=== PATIENT | female | born 1955 | race Caucasian/White ===

== ENCOUNTER → 2016-11-29 | Outpatient (REF) | payer BC ==
[2016-11-29 14:01] LABS: IMMUNOGLOBULIN M 62.2 MG/DL (40-230)
== END ==
LOC: M LAB REF 12:38
PROVIDERS: ATTEND Nurse Practitioner Adult Health
DX: D84.9 Immunodeficiency, unspecified (principal)

== ENCOUNTER → 2017-08-15 | Outpatient (REF) | payer OTHER | LOC: M SFHCWAGY 09:14 | DX: Z12.4 Encounter for screening for malignant neoplasm of cervix (principal) | CPT/HCPCS: G0123 ==

== ENCOUNTER → 2017-10-22 | Outpatient (CLI) | payer OTHER | LOC: M ADAMS 11:08 | DX: S80.01XA Contusion of right knee, initial encounter (principal); S50.01XA Contusion of right elbow, initial encounter; X58.XXXA Exposure to other specified factors, initial encounter; Y92.89 Other specified places as the place of occurrence of the external cause | CPT/HCPCS: 73080 ==

== ENCOUNTER → 2017-12-19 | Outpatient (REF) | payer OTHER | LOC: M LAB REF 13:37 | DX: R30.0 Dysuria (principal) | CPT/HCPCS: 87186 ==

== ENCOUNTER → 2018-06-03 | Outpatient (REF) | payer OTHER | LOC: M LAB REF 09:50 | DX: R30.0 Dysuria (principal) | CPT/HCPCS: 87086 ==

== ENCOUNTER → 2018-07-23 | Outpatient (CLI) | payer OTHER ==
--- NOTE | 2018-07-26 09:46 | DEXA ---
AP SPINE L1 - L4 1.184 -0.1 1.1 LT FEMUR TOTAL 0.977 -0.2 0.7 LT NECK 0.894 -1.0 0.2 RT FEMUR TOTAL 0.920 -0.7 0.2 RT NECK 0.852 -1.3 -0.1 TOTAL BODY TOTAL OTHER COMMENTS: Normal bone densitometry of the spine. There is low bone density of the hips. The density of the spine has decreased 1.3% since the initial exam on 12/20/2004. The spine density has increased 4.1% since the most recent exam on 07/21/2016. The density of the left hip has increased 1.3% since the initial exam on 12/20/2004. The density of the left hip is 0.0% since the most recent exam on 07/21/2016. The density of the right hip has increased 4.9% since the initial exam on 12/20/2004. The density of the right hip has decreased 1.6% since the most recent exam on 07/21 2016. FOLLOW-UP: Recommendation for the next bone density exam: 2 years. MARIA ELENA
== END ==
LOC: M WHC 12:41
PROVIDERS: ATTEND Physician Assistant
DX: M89.8X9 Other specified disorders of bone, unspecified site (principal); T45.1X5A Adverse effect of antineoplastic and immunosuppressive drugs, initial encounter

== ENCOUNTER → 2018-10-28 | Outpatient (CLI) | payer OTHER ==
[2018-10-28 18:50] LABS: BASO # 0.1 10^3/uL (0.0-0.2); BASO % 0.5 % (0.0-1.0); EOS # 0.2 10^3/uL (0.0-0.50); EOS % 1.5 % (0.0-3.0); HEMATOCRIT 42.4 % (36.0-47.0); HEMOGLOBIN 13.7 g/dl (12.0-15.5); LYMPH # 2.8 10^3/uL (1.5-4.5); LYMPH % 27.1 % (24.0-44.0); MEAN CORPUSCULAR HEMOGLOBIN 30.3 pg (27.0-33.0); MEAN CORPUSCULAR HGB CONC 32.3 g/dl (32.0-36.5); MEAN CORPUSCULAR VOLUME 93.8 fl (80.0-96.0); MONO # 0.7 10^3/uL (0.0-0.8); MONO % 6.8 % (0.0-5.0); NEUTROPHILS # 6.5 10^3/uL (1.8-7.7); NEUTROPHILS % 63.7 % (36.0-66.0); PLATELET COUNT, AUTOMATED 270 10^3/uL (150-450); RED BLOOD COUNT 4.52 10^6/uL (4.00-5.40); WHITE BLOOD COUNT 10.2 10^3/uL (4.0-10.0)
--- NOTE | 2018-10-29 07:10 | REP ---
CHEST, TWO VIEWS: Two views of the chest are performed and compared to prior study of 01/01/2011. There is no acute infiltrate or pulmonary edema. The heart is normal in size and the mediastinal silhouette is unchanged. Multiple metallic clips are seen in the left axillary region and a couple are seen in the right chest wall. There are mild degenerative changes of the spine. IMPRESSION: No acute pulmonary disease. Electronically Signed by Alexander Lopes MD 10/29/2018 09:20 A
== END ==
LOC: M ADAMS 13:14
PROVIDERS: ATTEND Physician Assistant Medical
DX: J20.9 Acute bronchitis, unspecified (principal)

== ENCOUNTER → 2018-12-28 | Outpatient (REF) | payer OTHER ==
[~2018-12-28] MED LIST: ALPR0.5T3 PO; BENZ-18 PO; BUPR150T3 PO; CALTTAB6 PO; CEFD1CAP8 PO; FISH1000 PO; FURO40TA2 PO; INTR6.5S PV; LETR2.5T2 PO; LEVO750T13 PO; LISI10TA4 PO; MEGE20TA3 PO; MONT10TA2 PO; MOXI1TAB PO; OMEP-221 PO; ONDA8TAB8 PO; PROAAER10 INH; RALO1TAB PO; ROSU5TAB4 PO; SULF1TAB93; VITMTA PO
== END ==
LOC: M LAB REF 13:59
PROVIDERS: ATTEND Physician Assistant Medical
DX: N39.0 Urinary tract infection, site not specified (principal)

== ENCOUNTER 2018-12-31 11:05 | Emergency (ER) | payer OTHER ==
[~2018-12-31] VITALS: Ht 175.3 cm; Wt 90.0 kg
[2018-12-31 12:01] LABS: BASO % 0.3 % (0.0-1.0); EOS % 0.2 % (0.0-3.0); HEMATOCRIT 40.6 % (36.0-47.0); HEMOGLOBIN 13.5 g/dl (12.0-15.5); LYMPH # 1.4 10^3/uL (1.5-4.5); LYMPH % 14.2 % (24.0-44.0); MEAN CORPUSCULAR HEMOGLOBIN 30.1 pg (27.0-33.0); MEAN CORPUSCULAR HGB CONC 33.3 g/dl (32.0-36.5); MEAN CORPUSCULAR VOLUME 90.6 fl (80.0-96.0); MONO # 1.1 10^3/uL (0.0-0.8); MONO % 11.7 % (0.0-5.0); NEUTROPHILS # 7.1 10^3/uL (1.8-7.7); NEUTROPHILS % 73.1 % (36.0-66.0); PLATELET COUNT, AUTOMATED 291 10^3/uL (150-450); RED BLOOD COUNT 4.48 10^6/uL (4.00-5.40); WHITE BLOOD COUNT 9.7 10^3/uL (4.0-10.0)
--- NOTE | 2018-12-31 12:07 | REP ---
Clinical: Cough and dyspnea. Technique: PA and lateral. Comparison: 10/28/2018. Findings: Left lower lobe infiltrate compatible with acute pneumonia. Mediastinum and cardiac silhouette normal. No effusion. No pneumothorax. Skeletal structures intact. Evidence for prior left axillary node dissection. Impression: Left lower lobe pneumonia. Electronically Signed by Jim Haas MD 12/31/2018 11:59 A
[2018-12-31] MEDS ORDERED: LISI10TA4 PO (12:13)
[2018-12-31] MEDS ORDERED: PROAAER10 INH (12:13)
[2018-12-31] MEDS ORDERED: INTR6.5S PV (12:13)
[2018-12-31] MEDS ORDERED: ONDA8TAB8 PO (12:13)
[2018-12-31] MEDS ORDERED: SULF1TAB93 (12:13)
[2018-12-31] MEDS ORDERED: MONT10TA2 PO (12:13)
[2018-12-31] MEDS ORDERED: BUPR150T3 PO (12:13)
[2018-12-31] MEDS ORDERED: ROSU5TAB4 PO (12:13)
[2018-12-31] MEDS ORDERED: MEGE20TA3 PO (12:13)
[2018-12-31] MEDS ORDERED: BENZ-18 PO (12:13)
[2018-12-31] MEDS ORDERED: OMEP-221 PO (12:13)
[2018-12-31] MEDS ORDERED: LETR2.5T2 PO (12:13)
[2018-12-31] MEDS ORDERED: RALO1TAB PO (12:13)
[2018-12-31] MEDS ORDERED: FURO40TA2 PO (12:13)
[2018-12-31] MEDS ORDERED: ALPR0.5T3 PO (12:13)
[2018-12-31 12:28] LABS: BLOOD UREA NITROGEN 12 MG/DL (7-18); CALCIUM LEVEL 9.2 MG/DL (8.8-10.2); CARBON DIOXIDE LEVEL 24 MEQ/L (21-32); CHLORIDE LEVEL 104 MEQ/L (98-107); CREATININE FOR GFR 0.89 MG/DL (0.55-1.30); GLOMERULAR FILTRATION RATE > 60.0 (>45); GLUCOSE, FASTING 104 MG/DL (70-100); POTASSIUM SERUM 4.3 MEQ/L (3.5-5.1); SODIUM LEVEL 137 MEQ/L (136-145)
[2018-12-31 12:29] LABS: ALBUMIN 3.4 GM/DL (3.2-5.2); ALT/SGPT 118 U/L (12-78); BILIRUBIN,DIRECT 0.2 MG/DL (0.0-0.2); BILIRUBIN,TOTAL 0.5 MG/DL (0.2-1.0); TOTAL PROTEIN 7.1 GM/DL (6.4-8.2)
[2018-12-31] MEDS ORDERED: CEFD1CAP8 PO (12:31)
[2018-12-31] MEDS ORDERED: MOXIFLOXACIN HCL 400 MG in APPROPRIATE DILUENT 1 EA IV ONE (13:00)
[2018-12-31] MEDS ORDERED: MOXI1TAB PO (14:43)
[2018-12-31 15:12] VITALS: BP 126/59
--- NOTE | 2018-12-31 21:05 | ECGEPIP ---
[facility] - ED Test Date: 2018-12-31 Pat Name: HECTOR PHILLIPS Department: Room: - Gender: Female Daycare Worker: mark : 1955 Requested By: Tamiko Lundberg Order Number: [id number] Reading MD: Tamiko Lundberg Measurements Intervals [place] Rate: 94 P: 49 MA: 166 QRS: 32 QRSD: 87 T: 40 QT: 339 QTc: 425 Interpretive Statements SINUS RHYTHM NO PRIOR FOR COMPARISON Electronically Signed on 12-31-2018 21:05:15 EDT by Tamiko Lundberg
[2019-01-01] MEDS ORDERED: VITMTA PO (11:42)
[2019-01-01] MEDS ORDERED: CALTTAB6 PO (11:42)
[2019-01-01] MEDS ORDERED: FISH1000 PO (11:42)
== END 2018-12-31 15:20 | disposition home or self-care (01) ==
LOC: M ED 11:05
DX: J18.9 Pneumonia, unspecified organism (principal); Z79.899 Other long term (current) drug therapy; Z88.1 Allergy status to other antibiotic agents; Z88.8 Allergy status to other drugs, medicaments and biological substances; Z91.040 Latex allergy status
CPT/HCPCS: 71046; 80048; 80076; 83605; 85025; 87040; 87486; 87581; 87633; 87798; 93005; 93041; 94760; 96365; 99285; J2280

== ENCOUNTER 2019-01-01 07:07 | Inpatient (IN) | payer OTHER ==
[~2019-01-01] VITALS: Ht 175.3 cm; Wt 93.2 kg
[~2019-01-01 07:07] MED LIST changes: -CALTTAB6 PO; -FISH1000 PO; -LEVO750T13 PO; -VITMTA PO
[2019-01-01 08:17] LABS: BASO # 0.1 10^3/uL (0.0-0.2); BASO % 0.5 % (0.0-1.0); EOS # 0.1 10^3/uL (0.0-0.50); EOS % 1.1 % (0.0-3.0); HEMATOCRIT 39.5 % (36.0-47.0); HEMOGLOBIN 13.4 g/dl (12.0-15.5); LYMPH # 1.7 10^3/uL (1.5-4.5); MEAN CORPUSCULAR HEMOGLOBIN 31.5 pg (27.0-33.0); MEAN CORPUSCULAR HGB CONC 33.9 g/dl (32.0-36.5); MEAN CORPUSCULAR VOLUME 92.9 fl (80.0-96.0); MONO # 1.1 10^3/uL (0.0-0.8); MONO % 11.1 % (0.0-5.0); NEUTROPHILS # 6.9 10^3/uL (1.8-7.7); NEUTROPHILS % 69.8 % (36.0-66.0); PLATELET COUNT, AUTOMATED 293 10^3/uL (150-450); RED BLOOD COUNT 4.25 10^6/uL (4.00-5.40); WHITE BLOOD COUNT 9.9 10^3/uL (4.0-10.0)
[2019-01-01] MEDS ORDERED: NS 500 ML IV ONE (09:00)
[2019-01-01 10:16] LABS: BLOOD UREA NITROGEN 13 MG/DL (7-18); CARBON DIOXIDE LEVEL 20 MEQ/L (21-32); CHLORIDE LEVEL 106 MEQ/L (98-107); CREATININE FOR GFR 0.94 MG/DL (0.55-1.30); GLOMERULAR FILTRATION RATE > 60.0 (>45); GLUCOSE, FASTING 106 MG/DL (70-100); POTASSIUM SERUM 4.4 MEQ/L (3.5-5.1); SODIUM LEVEL 136 MEQ/L (136-145)
[2019-01-01 10:17] LABS: ALBUMIN 3.1 GM/DL (3.2-5.2); ALT/SGPT 122 U/L (12-78); BILIRUBIN,DIRECT < 0.1 MG/DL (0.0-0.2); BILIRUBIN,TOTAL 0.5 MG/DL (0.2-1.0); CALCIUM LEVEL 9.3 MG/DL (8.8-10.2); CK-MB VALUE MASS < 1.0 NG/ML (<3.6); CPK CREATINE PHOSPHOKINASE 118 U/L (26-192); MB/CK RELATIVE INDEX 0.85 (< OR =4); TOTAL PROTEIN 7.3 GM/DL (6.4-8.2); TROPONIN I < 0.02 NG/ML (< 0.10)
[2019-01-01] MEDS ORDERED: VITMTA PO (11:42)
[2019-01-01] MEDS ORDERED: FISH1000 PO (11:42)
[2019-01-01] MEDS ORDERED: CALTTAB6 PO (11:42)
[2019-01-01] MEDS ORDERED: ONDANSETRON 4MG/2ML VIAL (J2405) IV PRN (12:15)
[2019-01-01 12:30] VITALS: BP 132/75
[2019-01-01] MEDS ORDERED: IPRATROPIUM 0.5MG/ALBUTEROL 2.5MG INH SOL UD 3ML (DUONEB)(J7620) NEB PRN (12:30)
[2019-01-01] MEDS: ALPRAZolam 0.5 MG TAB PO SCH (12:37)
[2019-01-01] MEDS: MULTIVITAMINS/MINERALS THERAP 1 TAB PO SCH (12:37)
--- NOTE | 2019-01-01 12:38 | HPEPDOC ---
[facility] Medical History & Physical Date of Admission January 01, 2019 Date of Service: January 01, 2019 History and Physical PCP: Roberta Mendosa CHIEF COMPLAINT: Weakness and cough HISTORY OF PRESENT ILLNESS: Patient is a 63-year-old female who was in her usual state of reasonably good health when on she began to have significant weakness cough and significant night sweats which were drenching her sheets. She also notices that on Monday to begin have dysuria with urgency and she did present to urgent care where she can provide a sample and was told that she had a urinary tract infection. She was sent home with Bactrim and states she took this Monday some minimal improvement in her symptoms. Following this on Monday she woke with persistence of her cough night sweats feeling worse she called urgent care once again and they provided with a new prescription for Omnicef. She took this for one day before presenting to the emergency room on 1 day after being evaluated there having stable labs and imaging she was discharged home. She had persistence of her symptoms and feeling worse prompting her to repeat present to our ER once again today. He tells me that she feels no better and is not improved she still has a persistent cough and sweats her urinary symptoms are somewhat improved. She'll be that she had a temperature of 102 at home on Monday but has not measured since. Over this period of time the patient also reports some dry heaves. Otherwise patient denies weight loss, hair loss, headache, visual changes, chest pain, shortness of breath, diarrhea, abdominal pain, muscle aches, worsening arthritis, change in mood, the patient does report or appetite over the last several days PAST MEDICAL HISTORY: 1. Infiltrating ductal carcinoma of the left breast HER-2 positive. 2. Hypertension. 3. Gastroesophageal reflux disease 4. Anxiety 5. Seasonal allergies 6. Dyslipidemia 7. Postmenopausal vaginal dryness HOME MEDICATIONS: Please see below. ALLERGIES: Please see below PAST SURGICAL HISTORY: 1. Left radical modified mastectomy. 2. port placement. 3. Colonoscopy. 4. Right mastectomy 5. D&C 6. Hysterectomy 7. 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 ETOH: Rare lasting 2 weeks ago, Illicit drug use: Denies, Tattoos done unprofessionally: Denies, CODE STATUS: Full code FAMILY HISTORY:Reviewed and noncontributory REVIEW OF SYSTEMS: 10 systems reviewed and negative other than HPI PHYSICAL EXAMINATION: VITAL SIGNS: Temperature 95.8, pulse 97, respiratory rate 18, blood pressure 131/68, pulse oximetry History % on 2 L GENERAL: Pleasant female sitting up in bed awake alert oriented speaking in complete sentences appears mildly fatigued she is diaphoretic HEENT: Dry mucous membranes no elevation and CVP CARDIOVASCULAR: S1 S2 regular no additional heart sounds appreciated. RESPIRATORY: Clear to auscultation bilaterally. Some rales at the left lower lobe ABDOMINAL: Bowel sounds present abdomen soft and nontender EXTREMITIES: No clubbing cyanosis or edema NEUROLOGICAL: Spontaneously moves all 4 extremities cranial 2 through 12 grossly intact no gross focal deficits appreciated PSYCHOLOGICAL: Appropriate LABORATORY DATA: See below. MICROBIOLOGY: Please see below. IMAGING: Chest x-ray:Left lower lobe pneumonia. ASSESSMENT & PLAN: This is a 63-year-old female with cough and weakness and fever at home are suspicious for left lower lobe community-acquired pneumonia. PROBLEMS: 1. Community-acquired pneumonia: Likely the etiology for her fevers at home and generalized weakness feeling unwell dry heaves and cough. She does have significant antibiotic allergies help place her on levofloxacin IV for the time being as she has had difficulty keeping food and pills down. She'll be admitted to medical surgical floor with close monitoring I will hold her home Lasix she did receive some IV fluid emergency room she is hemodynamically stable and not tachycardic, she is mildly hypothermic I'll provide her with acetaminophen as needed. Blood cultures have been drawn, given her question history of urinary tract infection I will check a UA with reflex urine culture. I will also check a respiratory PCR panel. She is wearing oxygen will examine her in the emergency room she does not use any home O2 she has no history of tobacco or COPD but was reportedly provided with an inhaler back in September which was admitted with pneumonia to an outside facility. I'll provide her with nebulizers for the time being. I'll also check a pro-calcitonin and follow-up her cultures closely 2.Hypertension: I'm holding her home furosemide continue with her lisinopril with holding parameter 3. Anxiety: Quite significant we'll continue her on her Wellbutrin and Xanax 4. Dyspareunia: Given her rather curious presentation I will hold her intrarosa 5. Seasonal allergies: Continue with Singulair 6. Infiltrating ductal carcinoma of the left breast: Completed chemotherapy 10 years ago continue with letrozole 7. Dyslipidemia: I will hold her statin she does have some mild abnormality of liver function tests will monitor while she is hospitalized 8. Obstructive lung disease: No history of documented asthma or COPD or significant risk factors. She does use albuterol home and does find some relief with this and as such I'll provide her with many treatments for the time being while she is hospitalized. She has no baseline O2 requirement and is requiring 2 L of emergency room we'll wean to room air as tolerated DVT PROPHYLAXIS: Lovenox DISPOSITION: Medical surgical floor inpatient status Vital Signs Vital Signs Date Time Temp Pulse Resp B/P (MAP) Pulse Ox O2 Delivery O2 Flow Rate FiO2 01/01/19 11:45 84 18 95 01/01/19 11:30 138/76 (96) 01/01/19 11:15 96.9 Nasal Cannula 2.0 Laboratory Data Labs 24H Laboratory Tests 2 01/01/19 08:04: Immature Granulocyte % (Auto) 0.5, White Blood Count 9.9, Red Blood Count 4.25, Hemoglobin 13.4, Hematocrit 39.5, Mean Corpuscular Volume 92.9, Mean Corpuscular Hemoglobin 31.5, Mean Corpuscular Hemoglobin Concent 33.9, Red Cell Distribution Width 13.2, Platelet Count 293, Neutrophils (%) (Auto) 69.8H, Lymphocytes (%) (Auto) 17.0L, Monocytes (%) (Auto) 11.1H, Eosinophils (%) (Auto) 1.1, Basophils (%) (Auto) 0.5, Neutrophils # (Auto) 6.9, Lymphocytes # (Auto) 1.7, Monocytes # (Auto) 1.1H, Eosinophils # (Auto) 0.1, Basophils # (Auto) 0.1, Nucleated Red Blood Cells % (auto) 0.0, Anion Gap 10, Glomerular Filtration Rate > 60.0, Calcium Level 9.3, Aspartate Amino Transf (AST/SGOT) 80H, Alanine Aminotransferase (ALT/SGPT) 122H, Alkaline Phosphatase 95, Total Bilirubin 0.5, Direct Bilirubin < 0.1, Total Creatine Kinase 118, Creatine Kinase MB < 1.0, Creatine Kinase MB Relative Index 0.85, Troponin I < 0.02, Total Protein 7.3, Albumin 3.1L, Albumin/Globulin Ratio 0.74L 01/01/19 09:29: Lactic Acid Level 1.1 CBC/BMP Laboratory Tests 01/01/19 08:04 Red Blood Count 4.25, Mean Corpuscular Volume 92.9, Mean Corpuscular Hemoglobin 31.5, Mean Corpuscular Hemoglobin Concent 33.9, Red Cell Distribution Width 13.2, Neutrophils (%) (Auto) 69.8 H, Lymphocytes (%) (Auto) 17.0 L, Monocytes (%) (Auto) 11.1 H, Eosinophils (%) (Auto) 1.1, Basophils (%) (Auto) 0.5, Neutrophils # (Auto) 6.9, Lymphocytes # (Auto) 1.7, Monocytes # (Auto) 1.1 H, Eosinophils # (Auto) 0.1, Basophils # (Auto) 0.1 Microbiology Microbiology 01/01/19 Blood Culture, Received Pending 01/01/19 Blood Culture, Received Pending Home Medications Scheduled Alprazolam (Alprazolam) 0.5 Mg Tablet, 0.5 MG PO QAM Bupropion Hcl (Bupropion Xl) 150 Mg Tab.er.24h, 150 MG PO DAILY Markos/D3/Mag11/Zinc/Primary Class Teacher/Raudel/Bor (Caltrate 600+D Plus Tablet) 1 Each Tablet, 1 TAB PO DAILY Cefdinir (Cefdinir) 300 Mg Capsule, 300 MG PO BID STARTED 12/30 FOR 7 DAYS Furosemide (Furosemide) 40 Mg Tablet, 40 MG PO DAILY Letrozole (Letrozole) 2.5 Mg Tablet, 2.5 MG PO QHS Lisinopril (Lisinopril) 10 Mg Tablet, 10 MG PO QHS Montelukast Sodium (Montelukast Sodium) 10 Mg Tablet, 10 MG PO QHS Multivitamins (Thera M Plus Tablet) 1 Each Tablet, 1 TAB PO DAILY [place]-3 Fatty Acids/Fish Oil (Fish Oil 1,000 mg Capsule) 1 Each Capsule, 1 CAP PO QHS Omeprazole (Omeprazole) 40 Mg Capsule.dr, 40 MG PO DAILY Prasterone (Dhea) (Intrarosa) 6.5 Mg Insert, 6.5 MG PV QHS Raloxifene HCl (Raloxifene HCl) 60 Mg Tablet, 60 MG PO QHS Rosuvastatin Calcium (Rosuvastatin Calcium) 5 Mg Tablet, 5 MG PO QHS Scheduled PRN Albuterol Sulfate (Proair Hfa) 8.5 Gm Hfa.aer.ad, 2 PUFFS INH Q4H PRN for SHORTN ESS OF BREATH Benzonatate (Benzonatate) 100 Mg Capsule, 200 MG PO TID PRN for COUGH Megestrol Acetate (Megestrol Acetate) 20 Mg Tablet, 20 MG PO DAILY PRN for HOT FLASHES Ondansetron (Ondansetron Odt) 8 Mg Tab.rapdis, 8 MG PO Q8H PRN for NAUSEA Allergies Coded Allergies: latex (Verified Allergy, Intermediate, rash,swelling,numbness, 12/31/18) Tetracyclines (Verified Allergy, Unknown, 12/31/18) rash clarithromycin (Verified Allergy, Unknown, 12/31/18) hives docetaxel (Verified Allergy, Unknown, 12/31/18) paclitaxel (Verified Allergy, Unknown, 12/31/18) anaph scopolamine (Verified Allergy, Unknown, 12/31/18) rash tobramycin (Verified Allergy, Unknown, 12/31/18) swelling A-FIB/CHADSVASC A-FIB History Current/History of A-Fib/PAF?: No MAYKEL VIGIL MD January 01, 2019 12:38
[2019-01-01] MEDS: LevoFLOXacin IV 750 MG in APPROPRIATE DILUENT 1 EA IV SCH (13:46)
[2019-01-01] MEDS: IPRATROPIUM 0.5MG/ALBUTEROL 2.5MG INH SOL UD 3ML (DUONEB)(J7620) NEB SCH (15:53)
[2019-01-01] MEDS: ENOXAPARIN 40 MG/0.4 ML SYRINGE (J1650) SC SCH (20:30)
[2019-01-01] MEDS: LETROZOLE 2.5 MG TAB PO SCH (20:31)
[2019-01-01] MEDS: MONTELUKAST 10 MG TAB PO SCH (20:31)
[2019-01-01] MEDS: LISINOPRIL 10 MG TAB PO SCH ×3 (20:33→21:00)
--- NOTE | 2019-01-01 20:56 | ECGEPIP ---
[facility] - ED Test Date: 2019-01-01 Pat Name: HECTOR PHILLIPS Department: Room: - Gender: Female Clinical Staff Pharmacist: : 1955 Requested By: Tamiko Lundberg Order Number: [id number] Reading MD: Tamiko Lundberg Measurements Intervals [place] Rate: 84 P: 44 WI: 168 QRS: 24 QRSD: 91 T: 31 QT: 369 QTc: 436 Interpretive Statements SINUS RHYTHM DECREASED RATE 12/31/18 Electronically Signed on 01-01-2019 20:56:42 EDT by Tamiko Lundberg
[2019-01-01 22:00] VITALS: BP 141/72
[2019-01-02] MEDS: ACETAMINOPHEN TAB 650MG DOSE (2X325MG) PO PRN ×2 (00:08→21:30)
[2019-01-02] MEDS: BENZONATATE 100 MG CAP PO PRN ×2 (00:08→21:30)
[2019-01-02 06:00] VITALS: BP 138/72
[2019-01-02 06:59] LABS: HEMATOCRIT 37.6 % (36.0-47.0); HEMOGLOBIN 12.5 g/dl (12.0-15.5); MEAN CORPUSCULAR HEMOGLOBIN 31.2 pg (27.0-33.0); MEAN CORPUSCULAR HGB CONC 33.2 g/dl (32.0-36.5); MEAN CORPUSCULAR VOLUME 93.8 fl (80.0-96.0); PLATELET COUNT, AUTOMATED 289 10^3/uL (150-450); RED BLOOD COUNT 4.01 10^6/uL (4.00-5.40); WHITE BLOOD COUNT 8.6 10^3/uL (4.0-10.0)
[2019-01-02] MEDS: IPRATROPIUM 0.5MG/ALBUTEROL 2.5MG INH SOL UD 3ML (DUONEB)(J7620) NEB SCH ×3 (07:26→14:52)
[2019-01-02 07:30] LABS: ALBUMIN 2.9 GM/DL (3.2-5.2); ALT/SGPT 175 U/L (12-78); BILIRUBIN,TOTAL 0.3 MG/DL (0.2-1.0); BLOOD UREA NITROGEN 11 MG/DL (7-18); CALCIUM LEVEL 9.3 MG/DL (8.8-10.2); CARBON DIOXIDE LEVEL 25 MEQ/L (21-32); CHLORIDE LEVEL 107 MEQ/L (98-107); CREATININE FOR GFR 0.74 MG/DL (0.55-1.30); GLOMERULAR FILTRATION RATE > 60.0 (>45); GLUCOSE, FASTING 99 MG/DL (70-100); POTASSIUM SERUM 3.8 MEQ/L (3.5-5.1); SODIUM LEVEL 140 MEQ/L (136-145); TOTAL PROTEIN 6.9 GM/DL (6.4-8.2)
[2019-01-02 08:56] LABS: PROTHROMBIN TIME 13.4 SECONDS (12.1-14.4)
[2019-01-02] MEDS: MULTIVITAMINS/MINERALS THERAP 1 TAB PO SCH ×2 (09:00→09:02)
[2019-01-02] MEDS: buPROPion **XL** TABLET 150MG (WELLBUTRIN XL) PO SCH (09:02)
[2019-01-02] MEDS: ALPRAZolam 0.5 MG TAB PO SCH (09:02)
[2019-01-02] MEDS: OMEPRAZOLE 20 MG CAP PO SCH (09:03)
--- NOTE | 2019-01-02 13:16 | IPNPDOC ---
Text Note Date of Service The patient was seen on 01/02/19. NOTE SUBJECTIVE: Ms. Seals is doing well this morning, denies difficulty breathing. She does want her home Lasix resumed as she has lymphedema of her left upper extremity status post mastectomy for breast cancer. Her left arm is starting to swell as it normally does and it is uncomfortable for her, she does state that she feels a little bit of burning with urination and that her urine does look a little darker than normal. No abdominal pain however. She otherwise denies chest pain, shortness breath, nausea, vomiting, fevers, chills. OBJECTIVE PHYSICAL EXAMINATION: VITAL SIGNS: Please see below. GENERAL: This is a pleasant 63-year-old female appearing her stated age who is sitting up in bed awake alert oriented speaking in complete sentences no acute distress HEENT: Moist mucous membranes, no JVD, EOMI CARDIOVASCULAR: S1 S2 regular, no murmurs rubs or gallops appreciated RESPIRATORY: Clear to auscultation bilaterally, no wheezing, rales or rhonchi appreciated ABDOMINAL: Normoactive bowel sounds 4, no hepatosplenomegaly or masses appreciated, no distention, no pain to palpation, no rebound rigidity or guarding EXTREMITIES: No clubbing, cyanosis or edema appreciated in lower extremities however left upper extremity is a bit edematous from shoulder to fingers. NEUROLOGICAL: No focal deficits appreciated PSYCHOLOGICAL: Affect is appropriate LABORATORY DATA, MICROBIOLOGY: Please see below. ASSESSMENT AND PLAN: This is a 63-year-old female who presented to the emergency department with weakness and cough and admitted for presumed pneumonia. 1. Community-acquired pneumonia -Due to her numerous allergies will continue the patient on levofloxacin IV for the time being. We will transition her to by mouth antibiotics shortly. Respiratory panel was negative and blood cultures are negative after 24 hours. Calcitonin pending. We will give her Mucinex to help with her excretions. 2. UTI -Urine culture is currently pending, urinalysis showed questionable UTI, however she is on levofloxacin which should cover for this as well. We'll monitor the patient's symptoms. We will await urine culture to tailor antibiotics if needed 3. Left upper extremity lymphedema -We will continue the patient's home Lasix but we'll also order a left upper extremity ultrasound to rule out DVT just in case. 4. Elevated LFTs - AST and ALT 108 and 175 respectively, patient does not have any tattoos or history of IV drug use. We will hold on hepatitis panel for now but we are obtaining right upper quadrant ultrasound. It is likely that this is due to initiation of statin into her medical regime about 3 months ago. We are holding statin currently. We will await right upper quadrant ultrasound for further recommendations. 5. Hypertension -We have resumed patient's home furosemide with holding parameters for her lymphedema which is bothering her and her left upper extremity, lisinopril is on board holding parameters as well 6. Anxiety -Continue Wellbutrin and Xanax 7. Infiltrating ductal carcinoma of the left breast -Completed chemotherapy 10 years ago continue with letrozole 7. Dyslipidemia -As mentioned above we are holding her statin for mild abnormality of liver function tests 8. COPD likely diagnosis -No formal documentation of this diagnosis. She uses albuterol at home. She may continue her DuoNebs here as needed. She was not using oxygen on physical examination today. Continue to monitor. DISPOSITION: We will see how her breathing status is doing tomorrow and also review the results right upper quadrant ultrasound for liver function test abno rmalities. VS,Fishbone, I+O VS, Fishbone, I+O Laboratory Tests 01/02/19 06:23 Red Blood Count 4.01, Mean Corpuscular Volume 93.8, Mean Corpuscular Hemoglobin 31.2, Mean Corpuscular Hemoglobin Concent 33.2, Red Cell Distribution Width 13.0, Calcium Level 9.3, Aspartate Amino Transf (AST/SGOT) 108 H, Alanine Aminotransferase (ALT/SGPT) 175 H, Alkaline Phosphatase 93, Total Bilirubin 0.3, Total Protein 6.9, Albumin 2.9 L Vital Signs Date Time Temp Pulse Resp B/P (MAP) Pulse Ox O2 Delivery O2 Flow Rate FiO2 01/02/19 06:00 98.8 90 18 138/72 (94) 95 2.0 01/01/19 11:15 Nasal Cannula I&O- Last 24 Hours up to 6 AM 01/02/19 06:00 Intake Total 1890 ml Output Total 925 ml Balance 965 ml GME ATTESTATION GME ATTESTATION My faculty preceptor for this patient encounter was physically present during the encounter and was fully available. All aspects of the patient interview, examination, medical decision making process, and medical care plan development were reviewed and approved by the faculty preceptor. The faculty preceptor is aware and concurs with the plan as stated in the body of this note and will attest to such by his/her cosignature. ATTENDING NOTE I saw and evaluated the patient. I agree with the findings and plan of care as documented in the resident's note JANY YBARRA DO January 02, 2019 13:16 MAYKEL VIGIL MD Jan 05, 2019 12:21
[2019-01-02 14:00] VITALS: BP 133/70
[2019-01-02] MEDS: LevoFLOXacin IV 750 MG in APPROPRIATE DILUENT 1 EA IV SCH (14:01)
[2019-01-02] MEDS: guaiFENesin ER 600 MG TAB PO SCH ×2 (14:01→21:30)
[2019-01-02 14:02] VITALS: BP 136/72
[2019-01-02] MEDS: FUROSEMIDE 40 MG TAB PO SCH (14:02)
--- NOTE | 2019-01-02 18:10 | REP ---
Clinical: Left upper extremity swelling. Technique: Real time andrews scale and color Doppler evaluation using linear high frequency transducer. Findings: Ultrasound examination of the left upper extremity venous structures including visualized jugular, subclavian, axillary, brachial, basilic, and cephalic veins demonstrate normal venous flow characteristics and no evidence for deep venous thrombosis. Impression: No DVT to the left upper extremity Electronically Signed by Jim Haas MD 01/02/2019 06:01 P
[2019-01-02] MEDS: ENOXAPARIN 40 MG/0.4 ML SYRINGE (J1650) SC SCH (21:28)
[2019-01-02 21:29] VITALS: BP 131/70
[2019-01-02] MEDS: LISINOPRIL 10 MG TAB PO SCH (21:29)
[2019-01-02] MEDS: MONTELUKAST 10 MG TAB PO SCH (21:30)
[2019-01-02] MEDS: LETROZOLE 2.5 MG TAB PO SCH (21:31)
[2019-01-02 22:00] VITALS: BP 131/70
[2019-01-03 06:00] VITALS: BP 120/74
[2019-01-03 06:22] LABS: HEMATOCRIT 36.6 % (36.0-47.0); MEAN CORPUSCULAR HEMOGLOBIN 30.1 pg (27.0-33.0); MEAN CORPUSCULAR HGB CONC 32.8 g/dl (32.0-36.5); MEAN CORPUSCULAR VOLUME 91.7 fl (80.0-96.0); PLATELET COUNT, AUTOMATED 336 10^3/uL (150-450); RED BLOOD COUNT 3.99 10^6/uL (4.00-5.40); WHITE BLOOD COUNT 9.1 10^3/uL (4.0-10.0)
[2019-01-03 06:50] LABS: ALBUMIN 2.8 GM/DL (3.2-5.2); ALT/SGPT 130 U/L (12-78); BILIRUBIN,TOTAL 0.6 MG/DL (0.2-1.0); BLOOD UREA NITROGEN 12 MG/DL (7-18); CALCIUM LEVEL 8.6 MG/DL (8.8-10.2); CARBON DIOXIDE LEVEL 27 MEQ/L (21-32); CHLORIDE LEVEL 107 MEQ/L (98-107); GLOMERULAR FILTRATION RATE > 60.0 (>45); GLUCOSE, FASTING 96 MG/DL (70-100); POTASSIUM SERUM 3.9 MEQ/L (3.5-5.1); SODIUM LEVEL 142 MEQ/L (136-145)
[2019-01-03] MEDS: IPRATROPIUM 0.5MG/ALBUTEROL 2.5MG INH SOL UD 3ML (DUONEB)(J7620) NEB SCH ×2 (07:54)
--- NOTE | 2019-01-03 08:13 | REP ---
Clinical: Hepatitis. Technique: Real time andrews scale ultrasound examination using curved array transducer. Findings: The liver demonstrates mild fatty infiltration without focal hepatic lesion. Incidental simple hepatic cysts are identified measuring 9 mm in the right lobe and 15 mm in the left lobe. The pancreas is incompletely evaluated but visualized portions appear normal. Gallbladder demonstrates layering sludge without wall thickening or pericholecystic fluid. No biliary ductal dilatation is appreciated and the common bile duct measures 3.3 mm diameter. Right kidney is normal in reniform shape without hydronephrosis and measures 11.2 x 4.4 x 5.0 cm. No ascites in the visualized right upper quadrant. Impression: 1. Hepatic steatosis and small benign simple hepatic cysts. 2. Layering sludge in the gallbladder without evidence for acute cholecystitis. Electronically Signed by Jim Haas MD 01/02/2019 01:39 P
[2019-01-03] MEDS: MULTIVITAMINS/MINERALS THERAP 1 TAB PO SCH (09:21)
[2019-01-03] MEDS: buPROPion **XL** TABLET 150MG (WELLBUTRIN XL) PO SCH (09:21)
[2019-01-03] MEDS: OMEPRAZOLE 20 MG CAP PO SCH (09:21)
[2019-01-03] MEDS: ALPRAZolam 0.5 MG TAB PO SCH (09:22)
[2019-01-03] MEDS: FUROSEMIDE 40 MG TAB PO SCH (09:22)
[2019-01-03] MEDS: guaiFENesin ER 600 MG TAB PO SCH (09:22)
[2019-01-03] MEDS: LevoFLOXacin IV 750 MG in APPROPRIATE DILUENT 1 EA IV SCH (13:02)
[2019-01-03] MEDS ORDERED: LEVO750T13 PO (13:54)
[2019-01-03 14:00] VITALS: BP 140/76
--- NOTE | 2019-01-03 15:02 | DS.PDOC ---
Discharge Summary General Date of Admission January 01, 2019 at 10:49 Date of Discharge 01/03/2019 Discharge Summary DISCHARGE DIAGNOSIS:Community acquired pneumonia SECONDARY DIAGNOSIS: 1.Anxiety 2. Hypertension 3. Gastroesophageal reflux disease 4. Infiltrating ductal carcinoma of the left breast HER-2 positive 5. Seasonal allergies 6. Dyslipidemia 7. Postmenopausal vaginal dryness PROCEDURES PERFORMED DURING STAY: None. CONSULTANTS: None HOSPITAL COURSE: Patient is 63-year-old female who was admitted weakness cough and night sweats for several days. She was seen at urgent care [facility] was suggestive of urinary tract infection she start antibiotics but not have improvement in her symptoms. She presented to the emergency room this was found to have a left lower lobe infiltrate was started on antibiotics for community-acquired pneumonia. The patient had good improvement in her symptoms she remained afebrile without leukocytosis and tachycardia treated with physical therapy and was cleared today she reports good improvement in her symptoms and is medically stable for discharge home. DISCHARGE MEDICATIONS: Please see below. ALLERGIES: Please see below. SUBJECTIVE: Patient tells me that she is feeling better she still had sweats last night but is certainly improved her cough is getting better otherwise patient denies chest pain, shortness, breath, nausea, vomiting, fevers, chills OBJECTIVE: PHYSICAL EXAMINATION: VITAL SIGNS: Please see below. GENERAL: Pleasant female sitting up in bed awake alert oriented speaking in complete sentences no acute distress HEENT: Moist mucous membranes no elevation and CVP CARDIOVASCULAR: S1 S2 regular no additional heart sounds appreciated. RESPIRATORY: Clear to auscultation bilaterally. Improved aeration of the left lower lobe ABDOMINAL: Bowel sounds present abdomen soft and nontender EXTREMITIES: No clubbing, cyanosis, edema NEUROLOGICAL: Spontaneously moves all 4 extremities cranial 2 through 12 grossly intact, no gross focal deficits appreciated PSYCHOLOGICAL: Appropriate LABORATORY DATA, MICROBIOLOGY: Please see below. IMAGING STUDIES: Liver ultrasound:1. Hepatic steatosis and small benign simple hepatic cysts. 2. Layering sludge in the gallbladder without evidence for acute cholecystitis DVT prophylaxis ordered: Lovenox ASSESSMENT AND PLAN: This is a 63-year-old female with community-acquired pneumonia left lower lobe. PROBLEMS: 1. Left lower lobe community-acquired pneumonia: Patient is much better today. At this time she can be transitioned to by mouth antibiotics and safely disposition home. She complete a seven-day course follow-up with her PCP. 2.Hypertension: Continue with furosemide continue with her lisinopril as well s he is normotensive 3. Anxiety: Quite significant we'll continue her on her Wellbutrin and Xanax 4. Dyspareunia: Resume intrarosa upon discharge 5. Seasonal allergies: Continue with Singulair 6. Infiltrating ductal carcinoma of the left breast: Completed chemotherapy 10 years ago continue with letrozole 7. Dyslipidemia: I will hold her statin she did have some mild abnormality of liver function tests which is improving at the time of discharge 8. Obstructive lung disease: No history of documented asthma or COPD or significant risk factors. She does use albuterol home and does find some relief with this. She has not had any O2 requirement and is breathing quite well comfortable on room air DISPOSITION: Home to self-care. DISCHARGE CONDITION: Improved and Stable. FOLLOW UP: PCP within 7 days ACTIVITY: As prior to admission. DIET: As prior to admission TIME SPENT ON DISCHARGE: 50 minutes Vital Signs/I&Os Vital Signs Date Time Temp Pulse Resp B/P (MAP) Pulse Ox O2 Delivery O2 Flow Rate FiO2 01/03/19 14:00 98.5 102 16 140/76 (97) 94 01/02/19 06:00 2.0 01/01/19 11:15 Nasal Cannula I&O- Last 24 Hours up to 6 AM 01/03/19 06:00 Intake Total 1710 ml Output Total 1850 ml Balance -140 ml Laboratory Data Labs 24H Laboratory Tests 2 01/03/19 05:56: Nucleated Red Blood Cells % (auto) 0.0, Anion Gap 8, Glomerular Filtration Rate > 60.0, Blood Urea Nitrogen 12, Creatinine 0.80, Sodium Level 142, Potassium Level 3.9, Chloride Level 107, Carbon Dioxide Level 27, Calcium Level 8.6L, Aspartate Amino Transf (AST/SGOT) 44H, Alanine Aminotransferase (ALT/SGPT) 130H, Alkaline Phosphatase 85, Total Bilirubin 0.6#, Total Protein 7.0, Albumin 2.8L, Albumin/Globulin Ratio 0.67L CBC/BMP Laboratory Tests 01/03/19 05:56 Red Blood Count 3.99 L, Mean Corpuscular Volume 91.7, Mean Corpuscular Hemoglobin 30.1, Mean Corpuscular Hemoglobin Concent 32.8, Red Cell Distribution Width 13.1, Calcium Level 8.6 L, Aspartate Amino Transf (AST/SGOT) 44 H, Alanine Aminotransferase (ALT/SGPT) 130 H, Alkaline Phosphatase 85, Total Bilirubin 0.6 #, Total Protein 7.0, Albumin 2.8 L Microbiology Microbiology 01/01/19 Blood Culture - Preliminary, Resulted No Growth after 48 hours. All Specime... 01/01/19 Blood Culture - Preliminary, Resulted No Growth after 48 hours. All Specime... 01/01/19 Respiratory Virus Panel (PCR) (TIAGO) - Final, Complete 01/01/19 Urine Culture - Final, Complete Discharge Medications Scheduled Alprazolam (Alprazolam) 0.5 Mg Tablet, 0.5 MG PO QAM, (Reported) Bupropion Hcl (Bupropion Xl) 150 Mg Tab.er.24h, 150 MG PO DAILY, (Reported) Markos/D3/Mag11/Zinc/Double Reamer Operator/Raudel/Bor (Caltrate 600+D Plus Tablet) 1 Each Tablet, 1 TAB PO DAILY, (Reported) Furosemide (Furosemide) 40 Mg Tablet, 40 MG PO DAILY, (Reported) Letrozole (Letrozole) 2.5 Mg Tablet, 2.5 MG PO QHS, (Reported) Levofloxacin (Levofloxacin) 750 Mg Tablet, 750 MG PO DAILY Lisinopril (Lisinopril) 10 Mg Tablet, 10 MG PO QHS, (Reported) Montelukast Sodium (Montelukast Sodium) 10 Mg Tablet, 10 MG PO QHS, (Reported) Multivitamins (Thera M Plus Tablet) 1 Each Tablet, 1 TAB PO DAILY, (Reported) [place]-3 Fatty Acids/Fish Oil (Fish Oil 1,000 mg Capsule) 1 Each Capsule, 1 CAP PO QHS, (Reported) Omeprazole (Omeprazole) 40 Mg Capsule.dr, 40 MG PO DAILY, (Reported) Prasterone (Dhea) (Intrarosa) 6.5 Mg Insert, 6.5 MG PV QHS, (Reported) Raloxifene HCl (Raloxifene HCl) 60 Mg Tablet, 60 MG PO QHS, (Reported) Rosuvastatin Calcium (Rosuvastatin Calcium) 5 Mg Tablet, 5 MG PO QHS, (Reported) Scheduled PRN Albuterol Sulfate (Proair Hfa) 8.5 Gm Hfa.aer.ad, 2 PUFFS INH Q4H PRN for SHORTNESS OF BREATH, (Reported) Benzonatate (Benzonatate) 100 Mg Capsule, 200 MG PO TID PRN for COUGH, (Reported) Megestrol Acetate (Megestrol Acetate) 20 Mg Tablet, 20 MG PO DAILY PRN for HOT FLASHES, (Reported) Ondansetron (Ondansetron Odt) 8 Mg Tab.rapdis, 8 MG PO Q8H PRN for NAUSEA, (Reported) Allergies Coded Allergies: latex (Verified Allergy, Intermediate, rash,swelling,numbness, 12/31/18) Tetracyclines (Verified Allergy, Unknown, 12/31/18) rash clarithromycin (Verified Allergy, Unknown, 12/31/18) hives docetaxel (Verified Allergy, Unknown, 12/31/18) paclitaxel (Verified Allergy, Unknown, 12/31/18) anaph scopolamine (Verified Allergy, Unknown, 12/31/18) rash tobramycin (Verified Allergy, Unknown, 12/31/18) swelling MAYKEL VIGIL MD January 03, 2019 15:02
== END 2019-01-03 15:30 | disposition home or self-care (01) | DRG 195 ==
LOC: M ED 07:07 → M ED INP 10:49 → M MS5PR 12:15
PROVIDERS: ADMIT Internal Medicine; ATTEND Internal Medicine
DX: J18.9 Pneumonia, unspecified organism (principal); I10 Essential (primary) hypertension; K21.9 Gastro-esophageal reflux disease without esophagitis; E78.5 Hyperlipidemia, unspecified; F41.9 Anxiety disorder, unspecified; Z85.3 Personal history of malignant neoplasm of breast; Z79.899 Other long term (current) drug therapy; Z91.040 Latex allergy status; Z88.8 Allergy status to other drugs, medicaments and biological substances

== ENCOUNTER → 2019-01-11 | Outpatient (REF) | payer OTHER ==
[~2019-01-11] MED LIST changes: +CALTTAB6 PO; +FISH1000 PO; +LEVO750T13 PO; +VITMTA PO
[2019-01-11 14:10] LABS: MONO SCRN NEGATIVE (NEGATIVE)
[2019-01-11 14:52] LABS: HEPATITIS A ANTIBODY IGM NEGATIVE (NEGATIVE); HEPATITIS B CORE ANTIBODY IGM NEGATIVE (NEGATIVE); HEPATITIS B SURFACE ANTIGEN NEGATIVE (NEGATIVE); HEPATITIS C VIRUS ABY INDEX < 0.0 INDEX (<0.8)
== END ==
LOC: M LAB REF 13:02
PROVIDERS: ATTEND Nurse Practitioner Adult Health
DX: R74.8 Abnormal levels of other serum enzymes (principal)

== ENCOUNTER → 2019-01-18 | Outpatient (REF) | payer OTHER | LOC: M LAB REF 11:24 | PROVIDERS: ATTEND Internal Medicine | DX: J18.9 Pneumonia, unspecified organism (principal) ==

== ENCOUNTER → 2019-02-06 | Outpatient (CLI) | payer OTHER ==
[~2019-02-06] MED LIST changes: -ROSU5TAB4 PO; +ROSU5TAB5 PO
--- NOTE | 2019-02-06 16:51 | REP ---
Clinical: Follow up pneumonia . Comparison: 12/31/2018 . Technique: PA and lateral. Findings: The mediastinum and cardiac silhouette are normal. The lung jaimes are clear and without acute consolidation, effusion, or pneumothorax. Previous left lower lobe pneumonia has resolved with minimal residual linear scarring suggested. The skeletal structures are intact and normal. Impression: 1. No acute cardiopulmonary process. Electronically Signed by Jim Haas MD 02/06/2019 04:43 P
== END ==
LOC: M WUC 16:22
PROVIDERS: ATTEND Nurse Practitioner Adult Health
DX: J18.9 Pneumonia, unspecified organism (principal)

== ENCOUNTER → 2019-08-29 | Outpatient (REF) | payer OTHER | LOC: M LAB REF 12:48 | PROVIDERS: ATTEND Physician Assistant | DX: N39.0 Urinary tract infection, site not specified (principal) ==

== ENCOUNTER → 2019-09-19 | Outpatient (REF) | payer OTHER ==
[~2019-09-19] MED LIST changes: -MONT10TA2 PO; +MONT10TA4 PO
== END ==
LOC: M LAB REF 19:15
PROVIDERS: ATTEND Nurse Practitioner Family
DX: N39.0 Urinary tract infection, site not specified (principal)

== ENCOUNTER → 2019-10-09 | Outpatient (REF) | payer OTHER ==
[2019-10-09 17:19] LABS: INFLUENZA A AMPLIFICATION NEGATIVE (NEGATIVE); INFLUENZA B AMPLIFICATION NEGATIVE (NEGATIVE)
== END ==
LOC: M LAB REF 16:22
PROVIDERS: ATTEND Nurse Practitioner Adult Health
DX: J06.9 Acute upper respiratory infection, unspecified (principal)

== ENCOUNTER → 2020-05-03 | Outpatient (CLI) | payer OTHER ==
--- NOTE | 2020-05-06 14:39 | SLEEPCENT ---
DATE: 05/03/2020 ORDERED BY: Dr. Kiara Gonzalez Nocturnal polysomnography was performed for evaluation of sleep physiology in this patient with a history of excessive somnolence and nonrestorative sleep. There was 9 hours and 22 minutes of data reviewed. There was 429.5 minutes of sleep identified. Sleep latency was prolonged at 51.5 minutes. REM latency was prolonged at 222 minutes. Sleep architecture showed initial poor progression. There were three REM cycles noted. Overall sleep efficiency was acceptable at 77.2 %. The electrocardiogram showed a sinus rhythm with an average heart rate of 70 beats per minute. EEG showed normal waveforms for wake and sleep. There were 281 respiratory events identified of 10 seconds in duration or greater for an apnea-hypopnea index of 39.3. The events were primarily obstructive, not exclusive to sleep stage nor body posture. Arousals from respiratory events occurred 11 times per hour, and oxygen desaturations were seen into the 80s. There was some minor limb activity, but arousals from limb events were few. IMPRESSION: Severe obstructive sleep apnea syndrome (G47.33). Apnea-hypopnea index 39.3. RECOMMENDATION: The patient should be encouraged to return to the sleep disorder center for pressure therapy. In the interim, alcohol and sedative avoidance should be practiced and caution exercised during the operation of motor vehicles. NEHEMIAHD
== END ==
LOC: M SLEEP 20:00
PROVIDERS: ATTEND Nurse Practitioner Family
DX: G47.33 Obstructive sleep apnea (adult) (pediatric) (principal)

== ENCOUNTER → 2020-05-04 | Outpatient (REF) | payer OTHER | LOC: M LAB REF 17:01 | PROVIDERS: ATTEND Physician Assistant | DX: R30.0 Dysuria (principal) ==

== ENCOUNTER → 2020-05-07 | Outpatient (REF) | payer OTHER ==
[2020-05-07 16:32] LABS: HEMATOCRIT 40.2 % (36.0-47.0)
[2020-05-07 16:41] LABS: PERCENT SATURATION 30.1 % (13.2-45.0)
== END ==
LOC: M LAB REF 16:06
PROVIDERS: ATTEND Nurse Practitioner Adult Health
DX: D50.9 Iron deficiency anemia, unspecified (principal)

== ENCOUNTER → 2020-05-15 | Outpatient (CLI) | payer OTHER ==
--- NOTE | 2020-05-20 07:11 | SLEEPCENT ---
DATE: 05/15/2020 ORDERED BY: Kiara Gonzalez Nocturnal polysomnography was performed for the titration of pressure therapy in this patient with obstructive sleep apnea syndrome, apnea-hypopnea index 39.3. For testing, a ResMed F30 full-face mask of medium size was used. There was 4 cm of water pressure applied to the circuit, and the lights were extinguished. There was 8 hours and 33 minutes of data reviewed. There were 429.5 minutes of sleep identified. Sleep latency was prolonged at 52.5 minutes. REM latency was prolonged at 138 minutes. Sleep architecture improved late in the study, and there were two long REM cycles noted. Overall sleep efficiency was 85.2%. The electrocardiogram showed a sinus rhythm with an average heart rate of 76 beats per minute. EEG showed normal waveforms for wake and sleep. Respiratory events were best palliated with CPAP at a pressure of 11. There was some mild patterning despite this pressure, but titrations remained into the mid upper 90s. There was minimal limb activity, and remaining measures of sleep physiology were normal. IMPRESSION: Obstructive sleep apnea syndrome (G47.33). RECOMMENDATION: Nightly use of pressure therapy, 11 cm of water. MTDD
== END ==
LOC: M SLEEP 20:00
PROVIDERS: ATTEND Nurse Practitioner Family
DX: G47.33 Obstructive sleep apnea (adult) (pediatric) (principal)

== ENCOUNTER → 2020-05-21 | Outpatient (CLI) | payer OTHER | LOC: M LABSMTC 09:31 | PROVIDERS: ATTEND Anesthesiology | DX: Z01.812 Encounter for preprocedural laboratory examination (principal); Z20.828 Contact with and (suspected) exposure to other viral communicable diseases | CPT/HCPCS: C9803; U0003 ==

== ENCOUNTER 2020-05-26 06:46 | Day surgery (SDC) | payer OTHER ==
[~2020-05-26] VITALS: Ht 177.8 cm; Wt 95.3 kg
[2020-05-26] MEDS ORDERED: NS 1,000 ML IV ONE (07:00)
[2020-05-26] MEDS ORDERED: LIDOCAINE 2% 100MG/5ML SDV (FOR ANES.) As Ordered ONE (07:06)
[2020-05-26] MEDS ORDERED: ONDANSETRON 4MG/2ML VIAL As Ordered ONE (07:43)
[2020-05-26] MEDS ORDERED: GLYCOPYRROLATE INJ 0.2 MG/ML 2 ML VIAL As Ordered ONE (07:48)
[2020-05-26] MEDS ORDERED: ePHEDrine SULFATE 25 MG/5 ML(5MG/ML) SYRINGE As Ordered ONE (07:51)
[2020-05-26] MEDS ORDERED: propofoL 500 MG/50 ML VIAL As Ordered ONE (07:57)
--- NOTE | 2020-05-26 08:22 | ROOR ---
Patient Name: Mely Seals Procedure Date: 05/26/2020 7:36 AM Date of : 1955 Age: 64 Room: [facility] Gender: Female Note Status: Finalized Procedure: Colonoscopy Indications: Screening for colorectal malignant neoplasm, Last colonoscopy: April 2013 Providers: Khadar Giordano MD Referring MD: Roberta Mendosa NP Requesting Provider: Medicines: Monitored Anesthesia Care Complications: No immediate complications. Procedure: Pre-Anesthesia Assessment: - Prior to the procedure, a History and Physical was performed, and patient medications and allergies were reviewed. The patient is competent. The risks and benefits of the procedure and the sedation options and risks were discussed with the patient. All questions were answered and informed consent was obtained. Patient identification and proposed procedure were verified by the physician, the nurse and the primary care coordinator in the procedure room. Mental Status Examination: alert and oriented. CV Examination: regular rate and rhythm. Prophylactic Antibiotics: The patient does not require prophylactic antibiotics. Prior Anticoagulants: The patient has taken no previous anticoagulant or antiplatelet agents. ASA Grade Assessment: III - A patient with severe systemic disease. After reviewing the risks and benefits, the patient was deemed in satisfactory condition to undergo the procedure. The anesthesia plan was to use monitored anesthesia care (MAC). Immediately prior to administration of medications, the patient was re-assessed for adequacy to receive sedatives. The heart rate, respiratory rate, oxygen saturations, blood pressure, adequacy of pulmonary ventilation, and response to care were monitored throughout the procedure. The physical status of the patient was re-assessed after the procedure. The Colonoscope was introduced through the anus and advanced to the cecum, identified by appendiceal orifice and ileocecal valve. The colonoscopy was somewhat difficult due to significant looping. The patient tolerated the procedure well. The quality of the bowel preparation was adequate to identify polyps. Findings: The perianal and digital rectal examinations were normal. The colon (entire examined portion) appeared normal. Impression: - The entire examined colon is normal. - No specimens collected. Recommendation: - Discharge patient to home. - Resume previous diet. - Continue present medications. - Repeat colonoscopy in 10 years for screening purposes. Khadar Giordano MD Khadar Giordano MD 05/26/2020 8:21:56 AM Electronically signed by Khadar Giordano MD Number of Addenda: 0 Note Initiated On: 05/26/2020 7:36 AM Estimated Blood Loss: Estimated blood loss: none.
[2020-05-26 08:45] VITALS: BP 118/68
[2020-05-26] MEDS ORDERED: propofoL 200 MG/20 ML VIAL As Ordered ONE (08:54)
== END 2020-05-26 09:40 | disposition home or self-care (01) ==
LOC: M OPP 06:46
PROVIDERS: ATTEND Surgery
DX: Z12.11 Encounter for screening for malignant neoplasm of colon (principal); I10 Essential (primary) hypertension; Z79.899 Other long term (current) drug therapy
CPT/HCPCS: 45378; J2405

== ENCOUNTER → 2020-09-28 | Outpatient (REF) | payer OTHER ==
[~2020-09-28] MED LIST changes: -BUPR150T3 PO; +BUPR150T4 PO; +LISI10TA22 PO; -LISI10TA4 PO; +MONT10TA10 PO; -MONT10TA4 PO
== END ==
LOC: M LAB REF 12:13
PROVIDERS: ATTEND Nurse Practitioner Family
DX: R30.0 Dysuria (principal)

== ENCOUNTER → 2021-05-13 | Outpatient (CLI) | payer OTHER ==
[~2021-05-13] MED LIST changes: +BACTDSTA; +BUPR150T12 PO; -BUPR150T4 PO; +ISOVUE-370 76% 100ML VIAL As Ordered ONE; -SULF1TAB93
--- NOTE | 2021-05-13 08:51 | REPVR ---
PROCEDURE INFORMATION: Exam: CT Thoracic Spine With Contrast Exam date and time: 05/13/2021 8:22 AM Age: 65 years old Clinical indication: Pain in thoracic spine; Additional info: Palpable lump RT thoracic area TECHNIQUE: Imaging protocol: Computed tomography images of the thoracic spine with intravenous contrast. Radiation optimization: All CT scans at this facility use at least one of these dose optimization techniques: automated exposure control; mA and/or kV adjustment per patient size (includes targeted exams where dose is matched to clinical indication); or iterative reconstruction. Contrast material: ISOVUE 370; Contrast volume: 75 ml; Contrast route: INTRAVENOUS (IV); COMPARISON: CR SPINE LS COMPLETE 08/12/2014 6:15 PM FINDINGS: Vertebrae: There is a mild scoliosis with mild degenerative changes but no evidence of acute fracture line, high-grade compression deformity, or worrisome malalignment. Unfused spinous process tips at T4 through T6, the of no acute clinical significance. Correlation with trauma history recommended. There is no the acute bony abnormality today. Disc spaces: No high-grade central stenosis. Spinal epidural space: No epidural fluid. Mediastinum: Tiny hiatal hernia. Lungs: Dependent likely atelectatic changes in the lungs with mild axial thickening but no dense consolidation or spiculated mass/nodule. Liver: Low-density liver suggesting fatty infiltration. Vasculature: Atherosclerotic changes of the coronary arteries. Soft tissues: I suspect partial visualization of bilateral breast prostheses. No paraspinal mass or hematoma. There is a dominant subcutaneous lesion extending to the skin surface in the right posterior paramedian body wall the level of about T4-5. This measures 18 mm. There is a much smaller lesion about 4 mm adjacent to this. This is most likely a benign lesion, given the location and appearance. If necessary, can be sampled under ultrasound guidance. IMPRESSION: Benign appearing a subcutaneous lesion and in the superficial soft tissues posteriorly, as above. No acute fracture. Electronically signed by: Bennie Batista On 05/13/2021 08:51:10 AM
== END ==
LOC: M RAD 07:49
PROVIDERS: ATTEND Registered Nurse
DX: R22.9 Localized swelling, mass and lump, unspecified (principal)
CPT/HCPCS: 72129; Q9967

== ENCOUNTER → 2021-05-26 | Outpatient (CLI) | payer OTHER ==
[~2021-05-26] MED LIST changes: -ISOVUE-370 76% 100ML VIAL As Ordered ONE; +LIDOCAINE 1% MDV 20ML VIAL As Ordered ONE
[2021-05-26 08:42] LABS: HEMATOCRIT 41.9 % (36.0-47.0); HEMOGLOBIN 13.7 g/dl (12.0-15.5); MEAN CORPUSCULAR HEMOGLOBIN 30.4 pg (27.0-33.0); MEAN CORPUSCULAR HGB CONC 32.7 g/dl (32.0-36.5); MEAN CORPUSCULAR VOLUME 93.1 fl (80.0-96.0); PLATELET COUNT, AUTOMATED 323 10^3/uL (150-450); WHITE BLOOD COUNT 9.5 10^3/uL (4.0-10.0)
[2021-05-26 08:58] LABS: INR 0.94
[2021-05-26 09:34] VITALS: BP 142/67
--- NOTE | 2021-05-26 11:07 | REP ---
INDICATION: LESION OF T SPINE. COMPARISON: None. TECHNIQUE: The procedure was performed by ADOLFO Vega, under the direct supervision of Dr. Lopes. The risks and benefits of the procedure were explained to the patient and an informed consent was obtained both verbally and written. Directly prior to the start of the procedure a formal time-out was completed in the procedure room. The right posterior T-spine soft tissue mass was localized using ultrasound guidance. The skin was prepped and draped in a sterile fashion. Six mL of buffered lidocaine was used as a local anesthetic. Using ultrasound guidance a 4 core biopsies were obtained using a 20 gauge Temno needle. The patient tolerated the procedure well and there were no immediate complications. After the appropriate amount of monitored convalescence the patient was discharged from the department. FINDINGS: Four core biopsy specimens were obtained using a 20 gauge Temno needle. These will be sent to pathology for further evaluation. IMPRESSION: Successful ultrasound-guided right posterior T-spine soft-tissue mass biopsy yielding 4 core specimens. <Electronically signed by Katalina Fournier > 05/26/21 1003 <Electronically signed by Alexander Lopes > 05/26/21 110
== END ==
LOC: M IRPRO 07:54
PROVIDERS: ATTEND Registered Nurse
DX: R22.9 Localized swelling, mass and lump, unspecified (principal)

== ENCOUNTER → 2021-06-04 | Outpatient (REF) | payer OTHER ==
[~2021-06-04] MED LIST changes: -LIDOCAINE 1% MDV 20ML VIAL As Ordered ONE
== END ==
LOC: M LAB REF 08:28
PROVIDERS: ATTEND Surgery
DX: D48.1 Neoplasm of uncertain behavior of connective and other soft tissue (principal); L72.0 Epidermal cyst

== ENCOUNTER → 2021-06-28 | Outpatient (REF) | payer OTHER ==
[~2021-06-28] MED LIST changes: -CEFD1CAP8 PO; +CEFD300C41 PO; -MONT10TA10 PO; +MONT10TA97 PO; -OMEP-221 PO; +OMEP40CA5 PO
== END ==
LOC: M LAB REF 16:23 → EEVIPCON 16:23
PROVIDERS: ATTEND Nurse Practitioner Adult Health
DX: N39.0 Urinary tract infection, site not specified (principal)

== ENCOUNTER → 2021-09-20 | Outpatient (CLI) | payer OTHER | LOC: M WHC 16:07 | PROVIDERS: ATTEND Specialist | DX: Z53.9 Procedure and treatment not carried out, unspecified reason (principal); Z12.31 Encounter for screening mammogram for malignant neoplasm of breast ==

== ENCOUNTER → 2021-09-21 | Outpatient (REF) | payer OTHER | LOC: M SFHCWAGY 13:15 | PROVIDERS: ATTEND Specialist | DX: Z12.4 Encounter for screening for malignant neoplasm of cervix (principal) | CPT/HCPCS: 87624; G0123 ==

== ENCOUNTER → 2021-09-21 | Outpatient (CLI) | payer OTHER | LOC: M WHC 07:50 | PROVIDERS: ATTEND Specialist | DX: Z12.31 Encounter for screening mammogram for malignant neoplasm of breast (principal) ==

== ENCOUNTER → 2021-11-02 | Outpatient (CLI) | payer OTHER ==
[2021-11-02 10:34] LABS: BLOOD UREA NITROGEN 12 MG/DL (7-18); CREATININE FOR GFR 0.81 MG/DL (0.55-1.30); GLOMERULAR FILTRATION RATE > 60.0 (>45)
== END ==
LOC: M PLALAB 08:09
PROVIDERS: ATTEND Specialist
DX: Z85.3 Personal history of malignant neoplasm of breast (principal)

== ENCOUNTER → 2021-11-08 | Outpatient (CLI) | payer OTHER ==
[~2021-11-08] MED LIST changes: +PROHANCE 279.3MG/ML 15ML VIAL ONE; +PROHANCE 279.3MG/ML 5ML VIAL ONE
== END ==
LOC: M PLAIMG 07:54
PROVIDERS: ATTEND Specialist
DX: Z85.3 Personal history of malignant neoplasm of breast (principal); Z98.82 Breast implant status; K76.89 Other specified diseases of liver
CPT/HCPCS: A9576; C8908

== ENCOUNTER → 2022-02-21 | Outpatient (CLI) | payer OTHER ==
[~2022-02-21] MED LIST changes: -PROHANCE 279.3MG/ML 15ML VIAL ONE; -PROHANCE 279.3MG/ML 5ML VIAL ONE
[2022-02-21 17:48] LABS: BASO # 0.1 10^3/uL (0.0-0.2); BASO % 0.6 % (0.0-1.0); EOS # 0.3 10^3/uL (0.0-0.5); EOS % 3.2 % (0.0-3.0); HEMATOCRIT 39.5 % (36.0-47.0); HEMOGLOBIN 12.9 g/dl (12.0-15.5); LYMPH # 3.2 10^3/uL (1.5-5.0); LYMPH % 32.4 % (24.0-44.0); MEAN CORPUSCULAR HEMOGLOBIN 30.2 pg (27.0-33.0); MEAN CORPUSCULAR HGB CONC 32.7 g/dl (32.0-36.5); MEAN CORPUSCULAR VOLUME 92.5 fl (80.0-96.0); MONO # 0.8 10^3/uL (0.0-0.8); MONO % 7.5 % (2.0-8.0); NEUTROPHILS # 5.6 10^3/uL (1.5-8.5); PLATELET COUNT, AUTOMATED 311 10^3/uL (150-450); RED BLOOD COUNT 4.27 10^6/uL (4.00-5.40); WHITE BLOOD COUNT 9.9 10^3/uL (4.0-10.0)
[2022-02-21 17:51] LABS: C REACTIVE PROTEIN QUANTITATIV < 0.30 MG/DL (0.00-0.30); RHEUMATOID FACTOR QUANT < 10.0 IU/ML (<15.0)
[2022-02-21 18:26] LABS: ERYTHROCYTE SEDIMENTATION RATE 8 mm/hr (0-30)
== END ==
LOC: M PLALAB 15:11
PROVIDERS: ATTEND Orthopaedic Surgery
DX: M17.0 Bilateral primary osteoarthritis of knee (principal)

== ENCOUNTER → 2022-11-23 | Outpatient (CLI) | payer OTHER ==
[~2022-11-23] MED LIST changes: +LEVO1TAB40 PO; -LEVO750T13 PO
== END ==
LOC: M WHC 12:37
PROVIDERS: ATTEND Internal Medicine Medical Oncology
DX: C50.912 Malignant neoplasm of unspecified site of left female breast (principal); Z17.0 Estrogen receptor positive status [ER+]; M85.811 Other specified disorders of bone density and structure, right shoulder

== ENCOUNTER → 2023-02-02 | Outpatient (REF) | payer OTHER | LOC: M PLALAB 11:35 | PROVIDERS: ATTEND Nurse Practitioner Family | DX: Z12.4 Encounter for screening for malignant neoplasm of cervix (principal) | CPT/HCPCS: 87624; G0123 ==

== ENCOUNTER → 2023-05-11 | Outpatient (CLI) | payer OTHER ==
[~2023-05-11] MED LIST changes: +AZEL1SPR3; +DULO1CAP6 PO; +PROHANCE 279.3MG/ML 15ML VIAL As Ordered ONE; +PROHANCE 279.3MG/ML 5ML VIAL As Ordered ONE
== END ==
LOC: M RAD 07:45
PROVIDERS: ATTEND Nurse Practitioner Family
DX: Z85.3 Personal history of malignant neoplasm of breast (principal); Z98.82 Breast implant status; Z12.39 Encounter for other screening for malignant neoplasm of breast; N95.1 Menopausal and female climacteric states
CPT/HCPCS: A9576; C8908

== ENCOUNTER 2023-05-31 12:19 | Day surgery (SDC) | payer OTHER ==
[~2023-05-31] VITALS: Ht 177.8 cm; Wt 104.3 kg
[~2023-05-31 12:19] MED LIST changes: -CEFD300C41 PO; +CEFD300C42 PO; -PROHANCE 279.3MG/ML 15ML VIAL As Ordered ONE; -PROHANCE 279.3MG/ML 5ML VIAL As Ordered ONE; +ceFAZolin SOD 2 GM in IV 1 EA IV ONE
[2023-05-31] MEDS ORDERED: LR 1,000 ML IV SCH (13:50)
[2023-05-31] MEDS ORDERED: MECL-86 PO (14:04)
[2023-05-31] MEDS ORDERED: GNPTAB36 PO (14:04)
[2023-05-31] MEDS ORDERED: ONDANSETRON 4MG 2ML VIAL As Ordered ONE (14:07)
[2023-05-31] MEDS ORDERED: LIDOCAINE 2% 100MG/5ML SDV (FOR ANES.) As Ordered ONE (14:07)
[2023-05-31] MEDS ORDERED: KETOROLAC 60MG 2ML VIAL As Ordered ONE (14:07)
[2023-05-31] MEDS ORDERED: propofoL 200 MG/20 ML VIAL As Ordered ONE (14:07)
[2023-05-31] MEDS ORDERED: fentaNYL 100 MCG/2 ML INJECTION As Ordered ONE (14:13)
[2023-05-31] MEDS ORDERED: MIDAZOLAM INJ 2MG/2ML VIAL As Ordered ONE (14:14)
[2023-05-31] MEDS ORDERED: LIDOCAINE 1% MDV 20ML VIAL As Ordered ONE (14:43)
[2023-05-31] MEDS ORDERED: ACETAMINOPHEN 1000MG 100ML IV BAG As Ordered ONE (15:10)
[2023-05-31 16:20] VITALS: BP 141/72; TEMP 97.6; O2SAT 97
== END 2023-05-31 16:34 | disposition home or self-care (01) ==
LOC: M SDC 12:19
PROVIDERS: ATTEND Podiatrist Foot & Ankle Surgery
DX: M20.11 Hallux valgus (acquired), right foot (principal); M21.611 Bunion of right foot; I10 Essential (primary) hypertension; I87.2 Venous insufficiency (chronic) (peripheral); E78.00 Pure hypercholesterolemia, unspecified; G47.33 Obstructive sleep apnea (adult) (pediatric); Z79.899 Other long term (current) drug therapy; Z88.8 Allergy status to other drugs, medicaments and biological substances; Z88.1 Allergy status to other antibiotic agents
CPT/HCPCS: 28295; C1713; J0131; J0665; J0690; J1100; J1885; J2250; J2405; J3010

== ENCOUNTER → 2023-06-08 | Outpatient (CLI) | payer OTHER ==
[~2023-06-08] MED LIST changes: +GNPTAB36 PO; +MECL-86 PO; -ceFAZolin SOD 2 GM in IV 1 EA IV ONE
== END ==
LOC: M PLAIMG 11:09
PROVIDERS: ATTEND Physician Assistant Medical
DX: J32.9 Chronic sinusitis, unspecified (principal)

== ENCOUNTER → 2023-07-04 | Outpatient (CLI) | payer OTHER | LOC: M CARPUL 13:02 | PROVIDERS: ATTEND Nurse Practitioner Adult Health | DX: D84.9 Immunodeficiency, unspecified (principal); Z92.21 Personal history of antineoplastic chemotherapy ==

== ENCOUNTER → 2023-11-16 | Outpatient (CLI) | payer MEDICARE ==
[~2023-11-16] MED LIST changes: +CEFD1CAP9 PO; -CEFD300C42 PO; +ONDA-284 PO; -ONDA8TAB8 PO; +ROSU5TAB40 PO; -ROSU5TAB5 PO
== END ==
LOC: M RAD 11:28
PROVIDERS: ATTEND Physician Assistant Medical
DX: H93.A3 Pulsatile tinnitus, bilateral (principal); I65.23 Occlusion and stenosis of bilateral carotid arteries

== ENCOUNTER → 2023-12-22 | Outpatient (CLI) | payer MEDICARE ==
[~2023-12-22] MED LIST changes: -ONDA-284 PO; +ONDA8TAB8 PO
== END ==
LOC: M RAD 08:12
PROVIDERS: ATTEND Physician Assistant Medical
DX: H93.A3 Pulsatile tinnitus, bilateral (principal)

== ENCOUNTER → 2024-03-21 | Outpatient (REF) | payer MEDICARE, BC ==
[~2024-03-21] MED LIST changes: +ONDA-284 PO; -ONDA8TAB8 PO
== END ==
LOC: M SFHCWAGY 13:20
PROVIDERS: ATTEND Specialist
DX: Z12.4 Encounter for screening for malignant neoplasm of cervix (principal); N95.2 Postmenopausal atrophic vaginitis

== ENCOUNTER → 2024-05-28 | Outpatient (REF) | payer MEDICARE | LOC: M LAB REF 16:26 | PROVIDERS: ATTEND Nurse Practitioner Adult Health | DX: N39.0 Urinary tract infection, site not specified (principal) ==

== ENCOUNTER → 2024-07-11 | Outpatient (CLI) | payer MEDICARE ==
[~2024-07-11] MED LIST changes: -ROSU5TAB40 PO; +ROSU5TAB49 PO
== END ==
LOC: M WUC 13:13
PROVIDERS: ATTEND Nurse Practitioner Family
DX: R05.9 Cough, unspecified (principal); J98.11 Atelectasis

== ENCOUNTER → 2024-08-05 | Outpatient (REF) | payer MEDICARE | LOC: M LAB REF 12:53 | PROVIDERS: ATTEND Nurse Practitioner Adult Health | DX: F41.9 Anxiety disorder, unspecified (principal); G47.33 Obstructive sleep apnea (adult) (pediatric) ==

== ENCOUNTER → 2024-08-09 | Outpatient (CLI) | payer MEDICARE ==
[2024-08-09 16:17] LABS: ALBUMIN 4.2 G/DL (3.2-5.2); ALKALINE PHOSPHATASE 80 U/L (35-104); ALT/SGPT 27 U/L (7.0-40); AST/SGOT 17 U/L (<34); BILIRUBIN,TOTAL 0.3 MG/DL (0.3-1.2); BLOOD UREA NITROGEN 11 MG/DL (9-23); CALCIUM LEVEL 9.9 MG/DL (8.3-10.6); CARBON DIOXIDE LEVEL 30 MMOL/L (20-31); CHLORIDE LEVEL 105 MMOL/L (98-107); CREATININE FOR GFR 0.72 MG/DL (0.55-1.30); GLOMERULAR FILTRATION RATE > 60.0 (>45); GLUCOSE, FASTING 91 MG/DL (74-106); POTASSIUM SERUM 4.6 MMOL/L (3.5-5.1); SODIUM LEVEL 142 MMOL/L (136-145); TOTAL PROTEIN 7.3 G/DL (5.7-8.2)
[2024-08-09 16:19] LABS: BASO # 0.1 10^3/uL (0.0-0.2); BASO % 0.8 % (0.0-1.0); EOS # 0.3 10^3/uL (0.0-0.5); EOS % 2.8 % (0.0-3.0); HEMATOCRIT 45.5 % (36.0-47.0); HEMOGLOBIN 14.5 g/dl (12.0-15.5); LYMPH # 3.2 10^3/uL (1.5-5.0); LYMPH % 31.5 % (24.0-44.0); MEAN CORPUSCULAR HEMOGLOBIN 30.3 pg (27.0-33.0); MEAN CORPUSCULAR HGB CONC 31.9 g/dl (32.0-36.5); MEAN CORPUSCULAR VOLUME 95.2 fl (80.0-96.0); MONO # 0.8 10^3/uL (0.0-0.8); MONO % 7.6 % (2.0-8.0); NEUTROPHILS # 5.7 10^3/uL (1.5-8.5); NEUTROPHILS % 56.3 % (36.0-66.0); PLATELET COUNT, AUTOMATED 320 10^3/uL (150-450); RED BLOOD COUNT 4.78 10^6/uL (4.00-5.40); WHITE BLOOD COUNT 10.2 10^3/uL (4.0-10.0)
[2024-08-09 16:21] LABS: MONO SCRN NEGATIVE (NEGATIVE)
[2024-08-14 15:02] LABS: LYME TOTAL ANTIBODY CIA <= 0.90 Index (<=0.90)
== END ==
LOC: M WUC 11:03
PROVIDERS: ATTEND Nurse Practitioner Family
DX: R05.9 Cough, unspecified (principal); R53.83 Other fatigue

== ENCOUNTER → 2024-08-14 | Outpatient (CLI) | payer MEDICARE | LOC: M WUC 10:28 | PROVIDERS: ATTEND Nurse Practitioner Family | DX: R05.9 Cough, unspecified (principal); R06.2 Wheezing ==

== ENCOUNTER → 2024-11-05 | Outpatient (CLI) | payer MEDICARE ==
[~2024-11-05] MED LIST changes: +METHACHOLINE KIT (6 VIAL.NEB PREMIX) INH ONE
== END ==
LOC: M RAD 07:24
PROVIDERS: ATTEND Physician Assistant
DX: R93.2 Abnormal findings on diagnostic imaging of liver and biliary tract (principal); R06.02 Shortness of breath; R91.8 Other nonspecific abnormal finding of lung field; R05.9 Cough, unspecified
CPT/HCPCS: 71250; 94070; 95070; J7674

== ENCOUNTER → 2024-11-18 | Outpatient (CLI) | payer MEDICARE ==
[~2024-11-18] MED LIST changes: +GADOXETATE DISODIUM 2.5MMOL/10ML VIAL (EOVIST) ONE; -METHACHOLINE KIT (6 VIAL.NEB PREMIX) INH ONE
== END ==
LOC: M PLAIMG 08:57
PROVIDERS: ATTEND Nurse Practitioner Adult Health
DX: K76.89 Other specified diseases of liver (principal)

== ENCOUNTER → 2024-11-25 | Outpatient (CLI) | payer MEDICARE ==
[~2024-11-25] MED LIST changes: -GADOXETATE DISODIUM 2.5MMOL/10ML VIAL (EOVIST) ONE
== END ==
LOC: M WHC 10:37
PROVIDERS: ATTEND Internal Medicine Medical Oncology
DX: Z00.00 Encounter for general adult medical examination without abnormal findings (principal); Z13.820 Encounter for screening for osteoporosis; I89.0 Lymphedema, not elsewhere classified; R11.0 Nausea; C50.919 Malignant neoplasm of unspecified site of unspecified female breast; N63.20 Unspecified lump in the left breast, unspecified quadrant; Z51.81 Encounter for therapeutic drug level monitoring; Z79.811 Long term (current) use of aromatase inhibitors; M85.851 Other specified disorders of bone density and structure, right thigh

== ENCOUNTER → 2024-11-27 | Outpatient (REF) ==
[2024-11-28 13:52] LABS: RUBEOLA IgG ANTIBODY > 300.00 AU/mL (>16.49)
[2024-11-29 12:18] LABS: QuantiFERON-TB Gold Plus NEGATIVE (NEGATIVE)
== END ==
LOC: M LAB 11:45
PROVIDERS: ATTEND Family Medicine
DX: Z01.89 Encounter for other specified special examinations (principal)

== ENCOUNTER → 2024-12-18 | Outpatient (REF) | payer MEDICARE | LOC: M LAB REF 12:17 | PROVIDERS: ATTEND Nurse Practitioner Family | DX: R30.0 Dysuria (principal) ==

== ENCOUNTER → 2024-12-22 | Outpatient (REF) | payer MEDICARE | LOC: M WUC 17:10 | PROVIDERS: ATTEND Student in an Organized Health Care Education/Training Program | DX: R30.0 Dysuria (principal) ==